=== PATIENT | male | born 2000 | race Caucasian/White ===

== ENCOUNTER 2020-11-09 20:48 | Emergency (ER) | payer OTHER ==
[~2020-11-09] VITALS: Ht 180.3 cm; Wt 75.0 kg
[2020-11-09 20:58] VITALS: BP 128/93; Ht 180.3 cm; Wt 75.0 kg
[2020-11-09] MEDS ORDERED: VOLTAREN75 MG PO (22:31)
== END 2020-11-09 22:36 | disposition home or self-care (01) ==
LOC: D.ER 20:48
DX: S80.02XA Contusion of left knee, initial encounter (principal); S80.01XA Contusion of right knee, initial encounter; V89.2XXA Person injured in unspecified motor-vehicle accident, traffic, initial encounter; Y93.9 Activity, unspecified; Y92.9 Unspecified place or not applicable